=== PATIENT | male | born 1970 | race Asian ===

== ENCOUNTER 2019-01-18 08:57 | Emergency (ER) | payer OTHER ==
[2019-01-18 09:25] VITALS: BP 150/80; PULSE 72; TEMP 98; BMI 29.0
[2019-01-18] MEDS ORDERED: IBUPROFEN 400 MG TABLET (FP) PO ONE ×2 (09:45→09:55)
--- NOTE | 2019-01-18 10:01 | PDOC ---
History of Present Illness - General Chief Complaint: Injury Stated Complaint: LT ANKLE SPRAIN Time Seen by Provider: 01/18/19 09:27 History Source: Patient Exam Limitations: No Limitations - History of Present Illness Initial Comments: 01/18/19 09:46 States while at work stepped down and twisted left ankle, causing inversion type injury. States his had multiple sprains to this foot in the past, states feels mildly different than previous and difficult to bear weight. Occurred: reports: this morning Severity: reports: mild, moderate Pain Location: reports: lower extremity (left ankle - ) Loss of Consciousness: no loss of consciousness Associated Symptoms (Fall): denies symptoms Past History - Travel Traveled outside of the country in the last 30 days: No Close contact w/someone who was outside of country & ill: No - Past Medical History Allergies/Adverse Reactions: Allergies Allergy/AdvReac Type Severity Reaction Status Date / Time No Known Drug Allergies Allergy Verified 01/18/19 09:24 shrimp Allergy Mild Hives Uncoded 01/18/19 09:24 Home Medications: Ambulatory Orders Atorvastatin Calcium [Lipitor] mg PO HS 01/18/19 Lisinopril/Hydrochlorothiazide [Lisinopril-Hctz 20-25 mg Tab] 1 each PO DAILY COPD: No HTN: Yes Hypercholesterolemia: Yes - Suicide/Smoking/Psychosocial Hx Smoking History: Smoker current status UNK Have you smoked in the past 12 months: No Number of Cigarettes Smoked Daily: 4 Hx Alcohol Use: No (social) Substance Use Type: None Review of Systems - Review of Systems Able to Perform ROS?: Yes Is the patient limited Maltese proficient: Yes Constitutional: Yes: See HPI. No: Symptoms Reported, Fever, Malaise HEENTM: No: Symptoms Reported Musculoskeletal: Yes: Symptoms Reported, See HPI, Joint Pain, Joint Swelling Integumentary: Yes: See HPI, Bruising. No: Symptoms Reported All Other Systems: Reviewed and Negative *Physical Exam - Vital Signs Last Vital Signs Temp Pulse Resp BP Pulse Ox 98 F 72 15 150/80 98 01/18/19 09:10 01/18/19 09:10 01/18/19 09:10 01/18/19 09:10 01/18/19 09:10 - Physical Exam General Appearance: Yes: Nourished, Appropriately Dressed, Apparent Distress, Mild Distress HEENT: positive: МАРИЯ, Normal ENT Inspection, TMs Normal, Pharynx Normal Neck: positive: Supple Respiratory/Chest: positive: Lungs Clear. negative: Chest Tender Musculoskeletal: positive: Decreased Range of Motion Extremity: positive: Normal Capillary Refill, Normal Inspection, Tender. negative: Normal Range of Motion (limited range of motion secondary to tenderness, however has no point tenderness to medial or lateral malleolus, no fifth metatarsal or navicular tenderness. Negative squeeze test. Neurovascular intact to toes.), Swelling, Calf Tenderness Integumentary: positive: Normal Color, Dry, Warm Neurologic: positive: extract mixer II-XII NML intact, Fully Oriented, Alert, Normal Mood/ Affect, Normal Response, Motor Strength 5/5 Moderate Sedation - Procedure Monitoring Vital Signs: Procedure Monitoring Vital Signs Temperature 98 F 01/18/19 09:10 Pulse Rate 72 01/18/19 09:10 Respiratory Rate 15 01/18/19 09:10 Blood Pressure 150/80 01/18/19 09:10 O2 Sat by Pulse Oximetry (%) 98 01/18/19 09:10 ED Treatment Course - RADIOLOGY Radiology Studies Ordered: Category Date Time Status ANKLE-LEFT [RAD] Stat Radiology 01/18/19 09:15 Taken Progress Note - Progress Note Progress Note: X-ray negative for fractures or dislocations, will treat with air cast and crutches *DC/Admit/Observation/Transfer Diagnosis at time of Disposition: Sprain of left ankle Qualifiers: Encounter type: initial encounter Involved ligament of ankle: unspecified ligament Qualified Code(s): S93.402A - Sprain of unspecified ligament of left ankle, initial encounter - Discharge Dispostion Disposition: HOME Condition at time of disposition: Stable Decision to Admit order: No - Referrals Referrals: Mariano Rivera MD [Staff Physician] - - Patient Instructions Printed Discharge Instructions: DI for Ankle Sprain Additional Instructions: Rest, ice to area on and off for 15 minutes 4-6 times a day Avoid heavy lifting or exercise until pain and swelling is resolved or until further directed Keep area highly elevated to reduce swelling Use splints/Long wrap as directed Followup with orthopedist in one to 2 days if not improving, if significantly improved may wait one week for followup with orthopedist May use ibuprofen every 6 hours as needed for pain - Post Discharge Activity Forms/Work/School Notes: Back to Work
== END 2019-01-18 10:27 | disposition home or self-care (01) ==
LOC: JERFT 08:57
DX: S93.402A Sprain of unspecified ligament of left ankle, initial encounter (principal); X58.XXXA Exposure to other specified factors, initial encounter; Y93.89 Activity, other specified; Y92.89 Other specified places as the place of occurrence of the external cause; I10 Essential (primary) hypertension
CPT/HCPCS: 73610-TC-LT-FY; 99281-25

== ENCOUNTER 2020-10-07 19:40 | Emergency (ER) | payer OTHER ==
[2020-10-07 20:04] VITALS: BP 163/84; PULSE 76; TEMP 98.5; BMI 29.8
== END 2020-10-07 20:33 | disposition home or self-care (01) ==
LOC: JERFT 19:40
DX: S83.92XA Sprain of unspecified site of left knee, initial encounter (principal)
CPT/HCPCS: 73562-TC-LT-FY; 99283-25